=== PATIENT | female | born 2000 | race Caucasian/White ===

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

== ENCOUNTER 2018-03-07 17:13 | Emergency (ER) | payer MEDICAID ==
[2018-03-07 17:51] VITALS: TEMP 98.6
[2018-03-07] MEDS ORDERED: Albuterol-Ipratrop 3 mg / 0.5 (3 ml) UD INH STA (18:00)
--- NOTE | 2018-03-07 18:44 | ED PDOC ---
History of Present Illness History of Present Illness: 18 year old female, with a history of asthma and seasonal allergies, presents to the emergency department complaining of shortness of breath and wheezing since yesterday. Denies fever and chills. Patient states she came in because she is unable to medicate herself at home. PMD: none provided HPI: Influenza Time Seen by Provider: 03/07/18 17:50 Chief Complaint: Cough, Cold, Congestion Chief Complaint (Provider): Cough, Cold, Congestion History Per: Patient Exam Limitations: no limitations Onset/Duration Of Symptoms: Days (x2) Past Medical History Reviewed: Historical Data, Nursing Documentation, Vital Signs Vital Signs: Last Vital Signs Temp 98.6 F 03/07/18 17:44 Pulse 101 H 03/07/18 17:44 Resp 20 03/07/18 17:44 BP 134/75 03/07/18 17:44 Pulse Ox 99 03/07/18 17:44 - Medical History PMH: Asthma - Family History Family History: States: Unknown Family Hx - Immunization History Hx Tetanus Toxoid Vaccination: No Hx Influenza Vaccination: No Hx Pneumococcal Vaccination: No - Home Medications Home Medications: Ambulatory Orders Medication Instructions Recorded Azithromycin [Zithromax] 250 mg PO DAILY #6 tab 09/11/17 Fluticasone Nasal [Flonase] 1 spray NS DAILY #1 bottle 09/11/17 Albuterol HFA [Ventolin HFA 90 2 puff IH [id number] PRN #1 inhaler 03/07/18 mcg/actuation (8 g)] Cetirizine HCl [Zyrtec] 10 mg PO DAILY #15 tab.rapdis 03/07/18 Fluticasone Nasal [Flonase] 2 spr NS DAILY #1 bottle 03/07/18 Prednisone [Deltasone] 3 tab PO DAILY #12 tablet 03/07/18 - Allergies Allergies/Adverse Reactions: Allergies Allergy/AdvReac Type Severity Reaction Status Date / Time No Known Allergies Allergy Verified 03/07/18 17:43 Review of Systems ROS Statement: Except As Marked, All Systems Reviewed And Found Negative Constitutional: Negative for: Fever, Chills Respiratory: Positive for: Shortness of Breath, Wheezing Physical Exam - Reviewed Nursing Documentation Reviewed: Yes Vital Signs Reviewed: Yes - Physical Exam Appears: Positive for: Non-toxic, No Acute Distress Head Exam: Positive for: ATRAUMATIC, NORMOCEPHALIC Skin: Positive for: Normal Color, Warm, Dry Eye Exam: Positive for: EOMI, Normal appearance, PERRL ENT: Positive for: Normal ENT Inspection Neck: Positive for: Normal, Painless ROM, Supple Cardiovascular/Chest: Positive for: Regular Rate, Rhythm. Negative for: Murmur Respiratory: Positive for: Wheezing (generalized) Gastrointestinal/Abdominal: Positive for: Normal Exam, Soft. Negative for: Tenderness Back: Positive for: Normal Inspection Extremity: Positive for: Normal ROM Neurologic/Psych: Positive for: Alert, Oriented Medical Decision Making Medical Decision Making: Time: 18:00 Initial Impression: asthma, allergies Initial Plan: --Duoneb 3ml INH --Predisone 60mg PO --Peak flow pre/post tx Scribe Attestation: Documented by Zari Campbell, acting as a scribe for Arpit Narayan PA-C Provider Scribe Attestation: All medical record entries made by the Scribe were at my direction and personally dictated by me. I have reviewed the chart and agree that the record accurately reflects my personal performance of the history, physical exam, medical decision making, and the department course for this patient. I have also personally directed, reviewed, and agree with the discharge instructions and disposition. - ECG O2 Sat by Pulse Oximetry: 99 (RA) Pulse Ox Interpretation: Normal Disposition - Clinical Impression Clinical Impression: Asthma exacerbation, Seasonal allergies - Patient ED Disposition Is Patient to be Admitted: No - Disposition Referrals: [facility] [Outside] Disposition: Routine/Home Disposition Time: 19:44 Condition: FAIR Prescriptions: Albuterol HFA [Ventolin HFA 90 mcg/actuation (8 g)] 2 puff IH [id number] PRN #1 inhaler PRN Reason: Shortness Of Breath Cetirizine HCl [Zyrtec] 10 mg PO DAILY #15 tab.rapdis Fluticasone Nasal [Flonase] 2 spr NS DAILY #1 bottle Prednisone [Deltasone] 3 tab PO DAILY #12 tablet Instructions: Asthma in Adults, Seasonal Allergies (DC) Forms: [facility] (Thai) Print Language: UZBEK
[2018-03-07 19:58] VITALS: BP 125/80; PULSE 85; RESP 16; O2SAT 100
== END 2018-03-07 19:58 | disposition home or self-care (01) ==
LOC: H.ER 17:13
DX: J45.901 Unspecified asthma with (acute) exacerbation (principal); J30.2 Other seasonal allergic rhinitis

== ENCOUNTER 2018-08-20 00:56 | Emergency (ER) | payer MEDICAID ==
[2018-08-20 01:21] VITALS: RESP 18; O2SAT 96
[2018-08-20 01:23] VITALS: BMI 34.9
--- NOTE | 2018-08-20 02:47 | ED PDOC ---
HPI: Abdomen Time Seen by Provider: 08/20/18 01:00 Chief Complaint (Nursing): Abdominal Pain Chief Complaint (Provider): Abdominal Pain History Per: Patient History/Exam Limitations: no limitations Onset/Duration Of Symptoms: Days (4) Current Symptoms Are (Timing): Still Present Location Of Pain/Discomfort: Suprapubic Quality Of Discomfort: "Pain" Associated Symptoms: denies: Fever, Nausea, Vomiting, Diarrhea, Constipation Additional Complaint(s): 18 year old female presents to the ER for an evaluation of lower abdominal pain onset 4 days ago. Patient took Advil without any relief. She does not recall when her last period was and she is not sexually active. Denies vomiting, fever, diarrhea or hematuria. PMD: Rozina Sánchez Abnormal Vaginal Bleeding: No Past Medical History Reviewed: Historical Data, Nursing Documentation, Vital Signs Vital Signs: Last Vital Signs Temp 98.3 F 08/20/18 01:09 Pulse 79 08/20/18 01:09 Resp 18 08/20/18 01:09 BP 111/75 08/20/18 01:09 Pulse Ox 96 08/20/18 01:09 - Medical History PMH: Asthma - Surgical History Surgical History: No Surg Hx - Family History Family History: States: Unknown Family Hx - Social History Current smoker - smoking cessation education provided: No Alcohol: None Drugs: Denies - Immunization History Hx Tetanus Toxoid Vaccination: No Hx Influenza Vaccination: No Hx Pneumococcal Vaccination: No - Home Medications Home Medications: Ambulatory Orders Medication Instructions Recorded Azithromycin [Zithromax] 250 mg PO DAILY #6 tab 09/11/17 Fluticasone Nasal [Flonase] 1 spray NS DAILY #1 bottle 09/11/17 Cetirizine HCl [Zyrtec] 10 mg PO DAILY #15 tab.rapdis 03/07/18 Fluticasone Nasal [Flonase] 2 spr NS DAILY #1 bottle 03/07/18 RX: Albuterol HFA [Ventolin HFA 90 2 puff IH [id number] PRN #1 inhaler 03/07/18 mcg/actuation (8 g)] RX: Prednisone [Deltasone] 3 tab PO DAILY #12 tablet 03/07/18 - Allergies Allergies/Adverse Reactions: Allergies Allergy/AdvReac Type Severity Reaction Status Date / Time No Known Allergies Allergy Verified 11/07/18 01:23 Review of Systems ROS Statement: Except As Marked, All Systems Reviewed And Found Negative Constitutional: Negative for: Fever Gastrointestinal: Positive for: Abdominal Pain. Negative for: Vomiting, Diarrhea, Constipation Genitourinary Female: Negative for: Hematuria, Vaginal Bleeding Physical Exam - Reviewed Nursing Documentation Reviewed: Yes Vital Signs Reviewed: Yes - Physical Exam Appears: Positive for: Well, Non-toxic, No Acute Distress Head Exam: Positive for: ATRAUMATIC, NORMAL INSPECTION, NORMOCEPHALIC Skin: Positive for: Normal Color, Warm, Dry. Negative for: Rash Eye Exam: Positive for: EOMI, Normal appearance, PERRL ENT: Positive for: Normal ENT Inspection Neck: Positive for: Normal, Painless ROM, Supple. Negative for: Decreased ROM Cardiovascular/Chest: Positive for: Regular Rate, Rhythm. Negative for: Murmur Respiratory: Positive for: Normal Breath Sounds. Negative for: Decreased Breath Sounds, Wheezing, Respiratory Distress Gastrointestinal/Abdominal: Positive for: Tenderness (mild suprapubic tenderness, no RLQ or LLQ tenderness, no RUQ or LUQ tenderness) Back: Positive for: Normal Inspection Extremity: Positive for: Normal ROM. Negative for: Tenderness, Pedal Edema, Deformity Neurologic/Psych: Positive for: Alert, Oriented (x3). Negative for: Motor/Sensory Deficits - ECG O2 Sat by Pulse Oximetry: 96 (RA) Pulse Ox Interpretation: Normal Medical Decision Making Medical Decision Making: Time: 228 Initial Plan: suprapubic pain, mild Acetaminophen 650mg Urine C&S Urinalysis Reevaluation Patient's urine presents no UTI and advised to follow up at outpatient [facility]. She is hanging out with her friends in the room and active, in no distress, walking around the jump, tolerating po. Clinical Impression: pelvic pain Upon provider evaluation patient is medically stable, and requires no further treatment in the ED at this time. Patient will be discharged. Counseling was provided and all questions were answered regarding diagnosis and need for follow up w [facility]. There is agreement to discharge plan. Return if symptoms persist or worsen. Scribe Attestation: Documented by Layo Mosqueda, acting as a scribe for Silvestre Billingsley MD Provider Scribe Attestation: All medical record entries made by the Scribe were at my direction and personally dictated by me. I have reviewed the chart and agree that the record accurately reflects my personal performance of the history, physical exam, medical decision making, and the department course for this patient. I have also personally directed, reviewed, and agree with the discharge instructions and disposition. Disposition - Clinical Impression Clinical Impression: Pelvic pain - Patient ED Disposition Is Patient to be Admitted: No Counseled Patient/Family Regarding: Studies Performed, Diagnosis, Need For Fol lowup - Disposition Referrals: [facility] [Outside] [facility] [[facility]] Disposition: Routine/Home Disposition Time: 03:30 Condition: IMPROVED Additional Instructions: follow up with your primary doctor in 1-2 days return to the ED with any worsening or concerning symptoms Instructions: Acute Pelvic Pain Forms: [employer] [facility] (Puerto Rican)
[2018-08-20 03:26] LABS: SQUAMOUS EPITHIAL 4 /hpf (0-5); URINE BACTERIA RARE (<OCC); URINE BILIRUBIN NEGATIVE (NEGATIVE); URINE BLOOD NEGATIVE (NEGATIVE); URINE CLARITY SLIGHTY-CLOUDY (Clear); URINE COLOR YELLOW (YELLOW); URINE GLUCOSE (UA) NEG (Normal); URINE LEUKOCYTE ESTERASE SMALL Leu/uL (Negative); URINE PROTEIN NEGATIVE (NEGATIVE); URINE UROBILINOGEN 0.2-1.0 mg/dL (0.2-1.0)
[2018-08-20 06:04] VITALS: BP 120/70; PULSE 63; TEMP 98.2
== END 2018-08-20 04:06 | disposition home or self-care (01) ==
LOC: H.ER 00:56
DX: R10.2 Pelvic and perineal pain (principal)